=== PATIENT | male | born 1970 | race Caucasian/White ===

== ENCOUNTER → 2016-12-30 | Day surgery (SDC) | payer OTHER ==
[~2016-12-30] VITALS: Ht 177.8 cm; Wt 99.8 kg
[~2016-12-30] MED LIST: ANAPROX DS550 MG PO; AVELOX400 MG PO; BACTRIM DS 8001 TA1 PO; FLAGYL500 MG PO; METAMUCIL FIBE3.4 GM PO; MULTIPLE VITAMI1 T25 PO; OMEPRAZOLE D/R20 MG PO; PEN-VEE K500 MG PO; PLACEBO #001 EACH PO; PRILOSEC40 M1 PO; ZANTAC 300300 MG PO; ZYRTEC10 MG PO
--- NOTE | ~2016-12-30 | O ---
[place], [place] OPERATIVE NOTE NAME: ALFRED GARCIA UNIT #: [id number] ROOM: DOCTOR: SHANDA URIAS MD BIRTHDATE: [birth year] DOS: GASTRO-ENDOSCOPIC REPORT INDICATIONS: The patient is 46-year-old. The patient has presented with chief complaint of dyspepsia, undergoing investigation. The patient drinking two 6 packs of beer daily. ALLERGIES: To no known medication. FAMILY HISTORY: Noncontributory. PAST SURGICAL HISTORY: Unremarkable. PAST MEDICAL HISTORY: Diverticulosis. SOCIAL HISTORY: Nonsmoker, however, 2 packs of beer per day. PROCEDURE: Today's procedure part of investigation is panendoscopy plus biopsy. PREMEDICATION: Versed and Diprivan. SCOPE: Olympus forwarding-viewing gastroscope Q10 video. REPORT: After putting the patient in the left lateral position and after application of lubricant to the scope, the scope was introduced. Thereafter, under direct visualization, I advanced through the length of the esophagus without difficulty. Gastric pouch was entered. Evidence of gastritis seen. Antral biopsy was obtained. Duodenal bulb, second and third part within normal limits. Small hiatal hernia was noticed. Scope was withdrawn back to the hypopharynx area. Vocal cords appeared to be distorted and edema of the hypopharynx was noticed, most likely ____ reflux evidenced. Air was suctioned out. The patient was extubated, tolerated procedure well. IMPRESSION: Small hiatal hernia, gastritis, status post biopsy and duodenitis. PLAN AND DISCUSSION: Omeprazole 20 mg 1 daily, antireflux measures. The patient advised to abstain from drinking two 6 packs of beer per day, which is the culprit in his dyspepsia and reflux is going to be addressed with antireflux measures, elevation of the head of the bed 6 inches all time, advised to have routine followup with you in office, p.r.n. visit with us in [facility]. I thank you very much again for your kind referral. [place], [place] OPERATIVE NOTE NAME: ALFRED GARCIA UNIT #: [id number] ROOM: DOCTOR: SHANDA URIAS MD BIRTHDATE: [birth year] SHANDA URIAS MD CM:CATHRYN:OPERATIVE NOTE [id number] SHANDA URIAS MD 12/30/16 1522 interface
[2016-12-30 09:50] VITALS: BP 141/88
[2016-12-30 10:42] VITALS: BP 154/90
[2016-12-30 10:57] VITALS: BP 160/84
[2016-12-30 11:12] VITALS: BP 145/100
== END | disposition home or self-care (01) ==
LOC: SDC 12-24 10:15
DX: K29.90 Gastroduodenitis, unspecified, without bleeding (principal); K44.9 Diaphragmatic hernia without obstruction or gangrene; Z87.19 Personal history of other diseases of the digestive system; K21.9 Gastro-esophageal reflux disease without esophagitis

== ENCOUNTER 2021-09-29 01:07 | Emergency (ER) | payer SELFPAY ==
[~2021-09-29] VITALS: Wt 90.7 kg
== END 2021-09-29 06:00 | disposition short-term general hospital (02) ==
LOC: ED 01:07
DX: S01.81XA Laceration without foreign body of other part of head, initial encounter (principal); E78.5 Hyperlipidemia, unspecified; Z79.899 Other long term (current) drug therapy; W18.30XA Fall on same level, unspecified, initial encounter; Y93.89 Activity, other specified; Y92.89 Other specified places as the place of occurrence of the external cause; Y99.9 Unspecified external cause status